=== PATIENT | male | born 1955 | race Caucasian/White ===

== ENCOUNTER 2016-06-20 17:23 | Emergency (ER) | payer OTHER ==
[~2016-06-20] VITALS: Ht 167.6 cm; Wt 84.0 kg
[~2016-06-20 17:23] MED LIST: ACHD5005 PO; AMOX1TAB7 PO; IBP800T PO; LSNP20T PO
--- OUTSIDE RECORDS SUMMARY | 2016-06-20 17:27 | XMS REPORT | Continuity of Care Document ---
Author Author [facility] Address Unknown Phone Unavailable Allergies Active Description Code Type Severity Reaction Onset Reported/Identified Relationship to Patient Clinical Status Yes No Known Drug Allergies [id number] Drug Allergy Unknown N/ A 07/14/2013 Medications Problems Date Dx Coded Attending Type Code Diagnosis Diagnosed By 07/14/2013 LAMONT KAUR DO Ot 801.41 07/14/2013 LAMONT KAUR DO Ot 802.6 07/14/2013 LAMONT KAUR DO Ot 812.42 07/14/2013 LAMONT KAUR DO Ot 920 07/14/2013 LAMONT KAUR DO Ot E000.0 07/14/2013 LAMONT KAUR DO Ot E849.3 07/14/2013 LAMONT KAUR DO Ot E885.9 03/12/2014 Ot 727.3 06/19/2014 Ot 727.3 06/20/2014 Ot 727.3 Procedures Results Encounters ACCT No. Visit Date/Time Discharge Status Pt. Type Provider Facility Loc./Unit Complaint [id number] 07/14/2013 11:01:00 2013 12:44:00 DIS Emergency [facility] LAMONT BRICENO [facility] ED [id number] 11/30/2011 16:39:00 Document Registration
--- OUTSIDE RECORDS SUMMARY | 2016-06-20 17:33 | XMS REPORT | Continuity of Care Document ---
Author Author [facility] Address Unknown Phone Unavailable Allergies Active Description Code Type Severity Reaction Onset Reported/Identified Relationship to Patient Clinical Status Yes No Known Drug Allergies [id number] Drug Allergy Unknown N/ A 07/14/2013 Medications [...] Status Pt. Type Provider Facility Loc./Unit Complaint [id number] 07/14/2013 11:01:00 2013 12:44:00 DIS Emergency [facility] LAMONT BRICENO [facility] ED [id number] 11/30/2011 16:39:00 Document Registration
[2016-06-20] MEDS ORDERED: ASP81TEC PO (18:15)
[2016-06-20] MEDS ORDERED: AMLO10TA82 PO (18:15)
[2016-06-20] MEDS ORDERED: CEPH250C PO (18:24)
[2016-06-20 18:55] VITALS: BP 155/86
== END 2016-06-20 18:56 | disposition home or self-care (01) ==
LOC: ED 17:28
DX: R10.31 Right lower quadrant pain (principal)
CPT/HCPCS: 99281; 99282